=== PATIENT | female | born 1965 | race Caucasian/White ===

== ENCOUNTER 2020-09-07 19:56 | Emergency (ER) | payer SELFPAY ==
[~2020-09-07] VITALS: Ht 170.2 cm; Wt 78.0 kg
[2020-09-07 21:44] LABS: URINE BILIRUBIN - DIPSTICK NEGATIVE (NEGATIVE); URINE BLOOD DIPSTICK NEGATIVE (NEGATIVE); URINE COLOR YELLOW; URINE GLUCOSE - DIPSTICK NEGATIVE (NEGATIVE); URINE KETONE NEGATIVE (NEGATIVE); URINE LEUK ESTERASE NEGATIVE (NEGATIVE); URINE PROTEIN - DIPSTICK NEGATIVE (NEG-TRACE); URINE UROBILINOGEN - DIPSTICK 0.2 E.U./dL (0.2)
[2020-09-07 21:45] LABS: URINE NITRITE - DIPSTICK NEGATIVE (Negative)
[2020-09-07] MEDS ORDERED: TRAMADOL HCL50 MG PO (22:02)
[2020-09-07] MEDS ORDERED: VOLTAREN75 MG PO (22:02)
[2020-09-07 22:15] VITALS: BP 143/70
== END 2020-09-07 22:15 | disposition home or self-care (01) | DRG 563 ==
LOC: ED 19:56
PROVIDERS: Family Medicine
DX: S46.912A Strain of unspecified muscle, fascia and tendon at shoulder and upper arm level, left arm, initial encounter (principal); S30.0XXA Contusion of lower back and pelvis, initial encounter; S70.02XA Contusion of left hip, initial encounter; W10.9XXA Fall (on) (from) unspecified stairs and steps, initial encounter; Y92.59 Other trade areas as the place of occurrence of the external cause

== ENCOUNTER 2020-09-09 21:44 | Emergency (ER) | payer SELFPAY ==
[~2020-09-09] VITALS: Ht 170.2 cm; Wt 78.0 kg
[~2020-09-09 21:44] MED LIST: TRAMADOL HCL50 MG PO; VOLTAREN75 MG PO
[2020-09-09 22:50] VITALS: BP 124/73
== END 2020-09-09 22:50 | disposition home or self-care (01) | DRG 563 ==
LOC: ED 21:44
DX: S93.602A Unspecified sprain of left foot, initial encounter (principal); W10.9XXA Fall (on) (from) unspecified stairs and steps, initial encounter; Y92.009 Unspecified place in unspecified non-institutional (private) residence as the place of occurrence of the external cause